=== PATIENT | female | born 1970 | race Caucasian/White ===

== ENCOUNTER 2018-04-13 17:07 | Emergency (ER) | payer OTHER ==
[~2018-04-13] VITALS: Ht 162.6 cm; Wt 147.1 kg
[2018-04-13 17:57] LABS: HEMOGLOBIN 12.6 G/DL (11.9-15.5); MCHC 33.2 G/DL (30.0-36.0); MCV 87.4 FL (83-99); PLATELET COUNT 285 K/uL (156-360); RBC DIS.WIDTH-CV 13.2 % (11.8-14.6); RBC DIS.WIDTH-SD 42.5 % (39-53); RED BLOOD COUNT 4.35 M/uL (3.80-5.20); WHITE BLOOD COUNT 12.4 K/uL (4.1-10.2)
[2018-04-13 18:05] LABS: CHLORIDE 100 mEq/L (99-109); POTASSIUM 4.3 mEq/L (3.7-5.4); SODIUM 138 mEq/L (136-147)
[2018-04-13 18:07] LABS: GLUCOSE 247 mg/dL (70-99)
[2018-04-13 18:10] LABS: CREATININE 0.8 mg/dL (0.6-1.3); GFR ESTIMATE (CALCULATED) > 59 mL/min/
[2018-04-13 18:11] LABS: UREA NITROGEN (BUN) 9 mg/dL (9-23)
[2018-04-13] MEDS ORDERED: KEFLEX500 MG PO (20:18)
[2018-04-13 20:34] VITALS: BP 148/89
== END 2018-04-13 20:20 | disposition home or self-care (01) ==
LOC: EME 17:07
PROVIDERS: Physician Assistant
DX: L03.116 Cellulitis of left lower limb (principal); E11.65 Type 2 diabetes mellitus with hyperglycemia; I10 Essential (primary) hypertension; Z88.0 Allergy status to penicillin
CPT/HCPCS: 80048; 85027; 93971; 99281; 99284